=== PATIENT | female | born 1985 | race Caucasian/White ===

== ENCOUNTER 2018-07-05 19:08 | Emergency (ER) | payer OTHER ==
[~2018-07-05] VITALS: Ht 167.6 cm; Wt 113.4 kg
[2018-07-05] MEDS ORDERED: AUGMENTIN 875-1 EACH PO (19:53)
== END 2018-07-05 20:26 | disposition home or self-care (01) ==
LOC: ED 19:08
DX: S61.452A Open bite of left hand, initial encounter (principal); W54.0XXA Bitten by dog, initial encounter; F17.200 Nicotine dependence, unspecified, uncomplicated; Z88.1 Allergy status to other antibiotic agents; Z88.8 Allergy status to other drugs, medicaments and biological substances
CPT/HCPCS: 73130; 99283-25